=== PATIENT | male | born 1995 | race Asian ===

== ENCOUNTER 2020-09-23 23:09 | Emergency (ER) | payer SELFPAY ==
[~2020-09-23] VITALS: Ht 182.9 cm; Wt 113.4 kg
[2020-09-23 23:25] VITALS: BP_SYST 138
[2020-09-24] MEDS: ONDANSETRON 4 MG ODT TAB PO ONE (00:24)
[2020-09-24] MEDS: IBUPROFEN 600 MG TABLET PO ONE (00:25)
[2020-09-24] MEDS ORDERED: ONDA4TAB5 PO (01:22)
[2020-09-24] MEDS ORDERED: ACET-2634 PO (01:22)
[2020-09-24] MEDS ORDERED: LOPE2CAP PO (01:22)
[2020-09-24] MEDS ORDERED: IBUP-1969 PO (01:22)
[2020-09-24 01:34] VITALS: BP_SYST 125
== END 2020-09-24 01:34 | disposition home or self-care (01) ==
LOC: SED 23:09
DX: R06.02 Shortness of breath (principal); R50.9 Fever, unspecified; R05 Cough; Z20.822 Contact with and (suspected) exposure to COVID-19; Z79.899 Other long term (current) drug therapy
CPT/HCPCS: 36415; 71045; 87426; 99284; Q0162